=== PATIENT | female | born 1980 | race African-American/Black ===

== ENCOUNTER 2017-05-18 20:55 | Emergency (ER) | payer OTHER ==
[~2017-05-18] VITALS: Ht 160 cm; Wt 81.0 kg
[~2017-05-18 20:55] MED LIST: ALEVE
[2017-05-19] MEDS ORDERED: CEFTRIAXONE 1 G PREMIX 50 ML IV ONE (01:00)
[2017-05-19] MEDS ORDERED: LIDOCAINE HCL 1% 20ML VIAL (Pyxis) INJ INFIL SCH (01:00)
[2017-05-19] MEDS ORDERED: CEFTRIAXONE SODIUM 1 G/VIAL IM SCH (01:15)
[2017-05-19 01:26] LABS: CLARITY URINE CLOUDY (CLEAR); COLOR URINE YELLOW (YELLOW); KETONES URINE TRACE (NEGATIVE); LEUKOCYTE ESTERASE URINE 3+ (NEGATIVE); NITRITE URINE NEGATIVE (NEGATIVE); OCCULT BLOOD URINE NEGATIVE (NEGATIVE); PH URINE 5.5 (4.5-8.0); PROTEIN URINE NEGATIVE (NEGATIVE); SPECIFIC GRAVITY URINE 1.029 (1.005-1.030); UROBILINOGEN URINE 0.2 E.U./dL (0.2-1.0)
[2017-05-19] MEDS ORDERED: KETOROLAC 30MG/ML VIAL IM ONE (01:45)
[2017-05-19] MEDS ORDERED: ONDANSETRON 4MG ODT PO ONE (01:45)
[2017-05-19 02:17] VITALS: BP 102/61
== END 2017-05-19 02:17 | disposition home or self-care (01) ==
LOC: ER 20:55
DX: N75.1 Abscess of Bartholin's gland (principal)
CPT/HCPCS: 81001; 81025; 87086; 96372; 99284; J0696; J1885; J3490; Q0162; Z7610

== ENCOUNTER 2019-05-09 04:38 | Emergency (ER) | payer OTHER ==
[~2019-05-09] VITALS: Ht 160 cm; Wt 77.0 kg
[2019-05-09] MEDS ORDERED: SODIUM CHLORIDE 0.9% 1,000 ML IV ONE (06:02)
[2019-05-09] MEDS ORDERED: FAMOTIDINE 20MG/2ML VIAL IV STA (06:02)
[2019-05-09] MEDS ORDERED: ONDANSETRON HCL 4MG/2ML INJ IV STA (06:02)
[2019-05-09 06:23] LABS: BASOPHILS % 0.4 % (0.0-2.0); EOSINOPHILS % 0.5 % (0.0-5.0); HEMATOCRIT. 38.4 % (36.0-48.0); LYMPHOCYTES % 15.2 % (20.0-50.0); MEAN CORPUSCULAR HEMOGLOBIN 30.5 pg (28.0-32.0); MEAN CORPUSCULAR VOLUME 90.5 fL (81.0-99.0); MEAN PLATELET VOLUME 7.9 fl (7.4-10.4); MONOCYTES % 7.3 % (2.0-8.0); NEUTROPHILS % 76.6 % (40.0-76.0); PLATELET 283 x1000/uL (130-400); RED BLOOD CELL COUNT 4.25 mill/uL (4.2-5.4)
[2019-05-09 06:29] LABS: CHLORIDE 111 mEq/L (98-107)
[2019-05-09] MEDS ORDERED: MORPHINE SULFATE 4 MG/ML CPJ (NOT FOR IM USE) IV ONE (06:30)
[2019-05-09 06:33] LABS: ETHANOL BLOOD < 10 mg/dL
[2019-05-09 06:34] LABS: PROTHROMBIN TIME 10.6 sec (9.6-11.0)
[2019-05-09 07:37] LABS: CLARITY URINE TURBID (CLEAR); COLOR URINE RED (YELLOW); KETONES URINE 2+ (NEGATIVE); LEUKOCYTE ESTERASE URINE 2+ (NEGATIVE); NITRITE URINE POSITIVE (NEGATIVE); OCCULT BLOOD URINE 3+ (NEGATIVE); PH URINE 5.5 (4.5-8.0); PROTEIN URINE 2+ (NEGATIVE); SPECIFIC GRAVITY URINE 1.038 (1.005-1.030); UROBILINOGEN URINE 0.2 E.U./dL (0.2-1.0)
[2019-05-09 07:52] LABS: *AMPHETAMINES SCREEN URINE NEGATIVE (NEGATIVE); *BARBITURATES SCREEN URINE NEGATIVE (NEGATIVE); *BENZODIAZEPINES SCREEN URINE NEGATIVE (NEGATIVE); *COCAINE SCREEN URINE NEGATIVE (NEGATIVE); METHADONE URINE SCREEN NEGATIVE (NEGATIVE); OPIATES URINE SCREEN NEGATIVE (NEGATIVE)
[2019-05-09 07:53] LABS: PHENCYCLIDINE URINE SCREEN NEGATIVE (NEGATIVE)
[2019-05-09 07:54] LABS: CANNABINOID URINE SCREEN PRESUMTIVE POSITIVE (NEGATIVE)
[2019-05-09 08:43] VITALS: BP 104/57
== END 2019-05-09 08:48 | disposition home or self-care (01) ==
LOC: ER 04:38
DX: N39.0 Urinary tract infection, site not specified (principal); F12.10 Cannabis abuse, uncomplicated
CPT/HCPCS: 36415; 71045; 76705; 80053; 80305; 80320; 81003; 81025; 83690; 84484; 85025; 85610; 87086; 93005; 96361; 96374; 96375; 99284; J2270; J2405; J3490; J7030; Z7610; G0480